=== PATIENT | female | born 1940 | race Caucasian/White ===

== ENCOUNTER 2021-07-17 20:16 | Inpatient (IN) | payer MEDICARE, SELFPAY ==
[2021-07-17] VITALS (13 sets, daily range): BP systolic 104; BP diastolic 50; PULSE 59–76; RESP 12–19; TEMP 36.6; O2SAT 93–100
--- NOTE | ~2021-07-17 | US_ITS ---
EXAMINATION: US renal BI EXAM DATE: 07/18/2021 10:47 INDICATION: Acute kidney insufficiency. TECHNIQUE: Multiple grayscale and Doppler images of the kidneys were obtained (by a technologist who performed the scan) and subsequently reviewed. There is no prior study for comparison. FINDINGS: Right kidney: There is normal contour and echogenicity. It measures 8.4 x 4.6 x 4.9 centimeters. Th ere are no focal renal lesions identified. There is no hydronephrosis. Left kidney: There is normal contour and echogenicity. It measures 8.7 x 4.0 x 4.9 centimeters. The re are no focal renal lesions identified. There is no hydronephrosis. Difficult to visualize the bladder. IMPRESSION: 1. Mild bilateral renal atrophy. 2. No hydronephrosis. Reviewed, dictated and finalized at location B. K SERVICE MANAGER
--- NOTE | ~2021-07-17 | XR_ITS ---
EXAMINATION: XR chest 2V DATE: 07/17/2021 21:21 INDICATION: Weakness. Atrial fibrillation. Nausea, vomiting and diarrhea. TECHNIQUE: frontal and lateral views of the chest were obtained. COMPARISON: None FINDINGS: Linear opacities consistent with discoid atelectasis in the bilateral lower lung zones. No other airs pace opacities, pulmonary edema, pleural effusion or pneumothorax. Heart size is normal. Tortuous and atherosclerotic thoracic aorta. Mild thoracic spondylosis and mild anterior wedging of a midthoracic vertebral body. IMPRESSION: 1. Linear discoid atelectasis in the bilateral lower lung zones. Reviewed, dictated and finalized at location A. SPECIAL EDUCATION TEACHER
--- NOTE | ~2021-07-17 | CT_ITS ---
EXAMINATION: CT brain wo con DATE: 07/17/2021 21:08 INDICATION: Altered mental status post fall TECHNIQUE: Computed tomography (CT) of the head was performed without intravenous contrast. Sagittal and coronal reconstructions were performed. The mA was adjusted according to patient size. Iterative reconstruction technique was employed. The dose-length product was 605.33 mGy-cm. COMPARISON: None FINDINGS: No fracture. No acute intracranial hemorrhage, acute infarction or abnormal extra axial fluid collect ion. There is mild to moderate scattered white matter hypoattenuation consistent with chronic small v essel ischemic disease. Symmetric prominence of the sulci and ventricles consistent with mild age-felicia ropriate diffuse cerebral volume loss. No mass/mass effect. Intracranial calcified cerebral atheroscl erosis is noted. The orbits, paranasal sinuses and mastoid air cells are normal. IMPRESSION: 1. No fracture or acute intracranial process. 2. Age-related changes including mild diffuse volume loss and mild scattered white matter hypoattenua tion consistent with chronic small vessel ischemic disease. Reviewed, dictated and finalized at location A. NESS COORDINATOR IMPRESSION: 1. No fracture or acute intracranial process. 2. Age-related changes including mild diffuse volume loss and mild scattered wh ite matter hypoattenuation consistent with chronic small vessel ischemic diseas e.
--- NOTE | 2021-07-17 20:25 | ECG_ITS ---
Measurements Intervals Wallace Rate: 60 P: 67 VT: 208 QRS: 18 QRSD: 85 T: 70 QT: 372 QTc: 374 Interpretive Statements SINUS RHYTHM EARLY PRECORDIAL R/S TRANSITION BASELINE ARTIFACT- I, II, III, AVR, AVL, AVF, V1-V3 BORDERLINE ECG Electronically Signed On 07-18-2021 7:46:54 COMPUTER SUPPORT SPECIALIST INSTRUCTOR by Wilton Mauricio D.O.
--- NOTE | 2021-07-17 20:56 | ED.WEAKNESS ---
HPI - Weakness General Chief complaint: Weakness <Aric De Souza MD - Last Filed: 07/17/21 21:04> Stated complaint: weakness, diarrhea x 2 wk, new onset afib <Aric De Souza MD - Last Filed: 07/17/21 21:04> Time Seen by Provider: 07/17/21 20:35 <Aric De Souza MD - Last Filed: 07/17/21 21:04> Source: family <Aric De Souza MD - Last Filed: 07/17/21 21:04> Mode of arrival: EMS <Aric De Souza MD - Last Filed: 07/17/21 21:04> Limitations: clinical condition and dementia <Aric De Souza MD - Last Filed: 07/17/21 21:04> History of Present Illness HPI Narrative: 81-year-old female Brought in by EMS accompanied by her daughter complaining of general weakness and debility Apparently the patient had a fall a week or 2 ago and was evaluated for that at [facility] and discharged, and at some point family was upset because a dressing or a diaper was not changed for a relatively prolonged amount of time Since then her daughter is staying with her and she reports basically a progressive global decline, less active, lying around, not eating, not drinking, not walking around, basically lying in bed and moaning most of the time She saw her primary care doctor in [place] earlier today and the daughter said that she was told that if she did perk up by the evening that she should be brought to the ER, although the daughter also says that there was really no reason to believe that said perking up would occur since no changes in her meds or treatment of any kind were initiated Daughter notes that she is had blood in her diapers which she thinks probably comes from sores rather than from the rectum, vagina, or urine EMS thought that she was in A. fib but it appears that she is not She does take Xarelto due to a stroke several years ago, we do not have any of her old records so it is unknown if that was related to A. fib or not, daughter does not know that she is ever had A. fib before <Arci De Souza MD - Last Filed: 07/17/21 21:04> Related Data Allergies/Adverse reactions: Allergies Allergy/AdvReac Type Severity Reaction Status Date / Time codeine AdvReac Other Verified 07/17/21 20:29 <Aric De Souza MD - Last Filed: 07/17/21 21:04> Review of Systems Review of Systems: ROS unobtainable: Yes unobtainable due to medical condition and unobtainable due to mental status <Aric De Souza MD - Last Filed: 07/17/21 21:04> Constitutional: Constitutional: Reports fatigue, Denies fever(s) and Reports weakness <Aric De Souza MD - Last Filed: 07/17/21 21:04> Respiratory: Respiratory: Denies cough and Denies dyspnea <Aric De Souza MD - Last Filed: 07/17/21 21:04> Gastrointestinal: Gastrointestinal: Reports diarrhea and Denies vomiting <Aric De Souza MD - Last Filed: 07/17/21 21:04> Musculoskeletal: Musculoskeletal: Reports myalgias and Reports arthralgias <Aric De Souza MD - Last Filed: 07/17/21 21:04> Neurologic: Reports confusion and Reports weakness <Aric De Souza MD - Last Filed: 07/17/21 21:04> Hematologic/Lymphatic: Hematologic/Lymphatic: Reports easy bleeding <Aric De Souza MD - Last Filed: 07/17/21 21:04> Exam Const: General: cooperative and ill appearing <Aric De Souza MD - Last Filed: 07/17/21 21:04> Orientation/consciousness: confusion <Aric De Souza MD - Last Filed: 07/17/21 21:04> Other: Frail, elderly <Aric De Souza MD - Last Filed: 07/17/21 21:04> HENMT: Head: normal to inspection, normocephalic, atraumatic, no contusions, no hematomas and no lacerations <Aric De Souza MD - Last Filed: 07/17/21 21:04> Ears: external ears normal <Aric De Souza MD - Last Filed: 07/17/21 21:04> General nose exam: no epistaxis <Aric De Souza MD - Last Filed: 07/17/21 21:04> Mouth: Yes dry mucous membranes <Aric De Souza MD - Last Filed: 07/17/21 21:04> Eyes: Conjunctivae: conjunctivae normal <Aric De Souza MD - Last Filed: 07/17/21 21:04> EOM: EOMs intact bilaterally <Antoinette
[2021-07-17] MEDS: LACTATED RINGERS 1,000 ML 999 ML IV CONT (20:58)
[2021-07-17 21:09] LABS: Basophils Percent Auto 0.1 % (0.2-1.2); Eosinophils Percent Auto 0.3 % (0-4.4); Hematocrit 32.4 % (42.0-52.0); Hemoglobin 10.3 g/dL (14.0-18.0); Immature Granulocyte Absolute 0.07 K/mm3 (0.00-0.031); Immature Granulocyte Percent A 0.9 % (0-0.5); Lymphocytes Absolute Auto 0.43 K/mm3 (0.9-3.2); Lymphocytes Percent Auto 5.5 % (18.3-44.2); Mean Corpuscular HGB Conc 31.8 g/dl (32-36); Mean Corpuscular Hemoglobin 31.1 pg (26-34); Mean Corpuscular Volume 97.9 fl (80-100); Monocytes Absolute Auto 0.8 K/mm3 (0.1-0.6); Monocytes Percent Auto 10.7 % (2.6-8.5); Neutrophils Absolute Auto 6.4 K/mm3 (1.3-6.7); Neutrophils Percent Auto 82.5 % (45.5-73.1); Platelet Count Result 205 k/mm3 (150-375); Red Blood Count 3.31 M/mm3 (4.6-6.20); Red Cell Distribution Width 14.1 % (11.5-14.5); White Blood Count 7.8 K/mm3 (4.5-10.0)
[2021-07-17 21:12] LABS: Add Urine Microscopic? YES; Appearance Urine Cloudy (Clear); Bilirubin Urine Negative (Negative); Blood Urine Negative (Negative); Color Urine Yellow (Yellow); Glucose Urine UA Negative (Negative); Ketones Urine Trace mg/dL (Negative); Leukocyte Esterase Ur Negative LEU/UL (Negative); Nitrate Urine Negative (Negative); Protein Urine Negative (Negative); Specific Grav Ur 1.017 (1.001-1.035); Urobilinogen Urine Negative mg/dL (<2.0); WBC Urine 0-3 /hpf
[2021-07-17 21:18] LABS: INR 1.7; Prothrombin Time 19.3 Seconds (11.1-14.7)
[2021-07-17 21:19] LABS: Partial Thromboplastin Time 28.2 SECONDS (22.3-36.8)
[2021-07-17 21:21] LABS: Lactic Acid Reflex 2.4 mmol/L (0.7-2.1)
[2021-07-17 21:26] LABS: Alanine Aminotransferase 11 U/L (4-35); Albumin Level 3.2 g/dL (3.5-5.1); Alkaline Phosphatase 111 U/L (38-126); Anion Gap 15 mmol/L (8-16); Aspartate Amino Transferase 26 U/L (14-36); Bilirubin,Total 0.5 mg/dL (0.2-1.3); Calcium 9.2 mg/dL (8.4-10.2); Carbon Dioxide 16 mmol/L (22-30); Chloride 102 mmol/L (98-107); Estimated CRCL calculation 6 ml/min; Estimated Glomerular Filt Rate 7; Glucose 117 mg/dL (65-110); Potassium 6.8 mmol/L (3.4-5.0); Sodium 133 mmol/L (137-145)
--- NOTE | 2021-07-17 21:34 | PC.NURSE ---
Called lab and spoke to Rach to add on CK
[2021-07-17 21:39] LABS: Blood Urea Nitrogen 153 mg/dL (7-17)
[2021-07-17 21:49] LABS: Creatine Kinase 85 U/L (30-135)
[2021-07-17] MEDS: ALBUTEROL SULFATE NEB 2.5 MG/0.5 ML INH 10 MG INHALATION (22:29)
[2021-07-17] MEDS: INSULIN HUMAN REGULAR (*BKC) 100 UNITS/ML 10 UNITS IV PUSH (22:40)
[2021-07-17] MEDS: CALCIUM GLUCONATE 1,000 MG/10 ML VIAL 1000 MG IV PUSH (22:41)
[2021-07-17] MEDS: DEXTROSE 50% 25 GM/50 ML SYRINGE IV PUSH (22:43)
[2021-07-17] MEDS: HYDROmorphone HCL INJ (*CRX) 1 MG/ML SYR (23:55)
[2021-07-17] MEDS: LACTATED RINGERS 1,000 ML 100 ML IV CONT (23:56)
[2021-07-18] VITALS (26 sets, daily range): BP systolic 93–115; BP diastolic 43–87; PULSE 48–68; RESP 12–20; TEMP 35.9–36.9; O2SAT 92–100; BMI 22.4; BMI 26.2
[2021-07-18 00:06] LABS: Reflex Lactic Acid Yes or No Add Lactic
--- NOTE | 2021-07-18 01:09 | PM.IMHP ---
H&P: HPI History of Present Illness Date/Time: 07/18/21 01:09 Chief Complaint: Altered mental status Narrative: This is an 81-year-old female with past medical history significant for advanced dementia, dyslipidemia, Parkinson's disease, atrial fibrillation. Patient was brought to the emergency room due to daughter's concerns for the patient has declined in mentation and poor oral intake for the last 3 weeks or so patient had a visit to [facility] about a week ago to the emergency room and she then was discharged back home. Patient is unable to give any history she is moaning in pain according to daughter she has a worsening sacral decubitus ulcer, has had fever and very poor oral intake. 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 Decision has been made to admit the patient for further management, evaluation and treatment. Review of Systems Review of Systems: ROS unobtainable: Yes unobtainable due to medical condition (Advanced dementia) [facility] Family History Family History (Updated 07/18/21 @ 02:09 by Brittney Tom RN) Other Unknown family medical history Social History Social History Smoking status: Never smoker Alcohol intake: never Substance use: never Spiritual care concerns: No Meds Home Medications and Allergies Home Medications Medication Instructions Recorded Confirmed Type atorvastatin 80 mg PO HS 07/18/21 07/18/21 History carbidopa-levodopa 1 tablet PO Q12H 07/18/21 07/18/21 History metoprolol succinate 50 mg PO QAM 07/18/21 07/18/21 History pramipexole 1 mg PO Q12H 07/18/21 07/18/21 History rivaroxaban [Xarelto] 15 mg PO QAM 07/18/21 07/18/21 History spironolactone 25 mg PO HS 07/18/21 07/18/21 History spironolactone 50 mg PO QAM 07/18/21 07/18/21 History trazodone 100 mg PO HS 07/18/21 07/18/21 History Allergies Allergy/AdvReac Type Severity Reaction Status Date / Time Tetanus Vaccines and Toxoid Allergy Unknown Verified 07/18/21 02:59 codeine AdvReac Other Verified 07/17/21 20:29 donepezil [From Aricept] AdvReac Confusion Verified 07/18/21 02:59 Vital Signs Vital Signs - 24 hr 07/17/21 20:17 07/17/21 21:49 07/17/21 22:00 Temperature 97.9 F Pulse Rate 76 60 64 Respiratory Rate 15 19 15 Blood Pressure Pulse Oximetry 93 98 100 07/17/21 22:15 07/17/21 22:30 07/17/21 22:33 Temperature Pulse Rate 62 59 L Respiratory Rate 14 18 18 Blood Pressure Pulse Oximetry 100 97 07/17/21 22:47 07/17/21 23:00 07/17/21 23:17 Temperature Pulse Rate 62 73 Respiratory Rate 15 16 15 Blood Pressure Pulse Oximetry 100 100 100 07/17/21 23:21 07/17/21 23:30 07/17/21 23:32 Temperature Pulse Rate 72 71 72 Respiratory Rate 12 16 18 Blood Pressure 104/50 L Pulse Oximetry 100 96 07/17/21 23:45 07/18/21 00:16 07/18/21 00:17 Temperature Pulse Rate 74 67 68 Respiratory Rate 13 12 15 Blood Pressure Pulse Oximetry 98 100 98 07/18/21 00:22 07/18/21 00:26 07/18/21 00:30 Temperature Pulse Rate 65 67 62 Respiratory Rate 13 14 Blood Pressure 93/51 L Pulse Oximetry 100 96 07/18/21 00:31 07/18/21 00:36 07/18/21 00:41 Temperature Pulse Rate 63 61 62 Respiratory Rate 13 13 Blood Pressure Pulse Oximetry 97 07/18/21 00:45 07/18/21 00:51 Temperature Pulse Rate 62 59 L Respiratory Rate 12 15 Blood Pressure 94/58 L Pulse Oximetry 96 97 Exam Narrative: Patient is laying in [facility] Const: General: no acute distress, ill appearing acutely and other (Stuporous) Nutritional Appearance: thin Orientation/consciousness: Other orientation findings (Stuporous) HENMT: Head: normal to inspection, normocephalic and atraumatic Ears: hearing grossly normal bilaterally Face and sinus: normal facial exam Mouth: Yes dry m
--- NOTE | 2021-07-18 02:08 | PC.NURSE ---
This patient, Jane Nance, was admitted to IMU Room 231-01 on 07/18/2021 at 0200. Patient/family oriented to hospital policies and general routines including ID bracelet, bed and alarms, visiting hours, pain management, procedures, bathroom and other care routines, personal items, smoking policy, room service/diet, and visiting hours. Information on how to activate the Rapid Response Team has been discussed. Patient/Family are encouraged to report perceived risks to care and to ask questions if they do not understand what they are told or what they should do.
[2021-07-18 05:50] LABS: Anion Gap 12 mmol/L (8-16); Calcium 9.2 mg/dL (8.4-10.2); Carbon Dioxide 16 mmol/L (22-30); Chloride 101 mmol/L (98-107); Estimated CRCL calculation 8 ml/min; Estimated Glomerular Filt Rate 10; Glucose 117 mg/dL (65-110); Potassium 6.1 mmol/L (3.4-5.0); Sodium 129 mmol/L (137-145)
[2021-07-18 06:26] LABS: Blood Urea Nitrogen 138 mg/dL (7-17)
[2021-07-18] MEDS: LACTATED RINGERS 1,000 ML 100 ML IV CONT (08:36)
[2021-07-18] MEDS: SODIUM BICARBONATE 8.4% 75 MEQ in SODIUM CHLORIDE 0.45% 1,000 ML 100 MEQ IV CONT ×2 (09:55→20:57)
--- NOTE | 2021-07-18 11:53 | PM.IMPN ---
Progress Note: A&P Assessment and Plan (1) Acute renal failure: Qualifiers: Acute renal failure type: unspecified Qualified Code(s): N17.9 - Acute kidney failure, unspecified Code(s): N17.9 - Acute kidney failure, unspecified Status: Acute Assessment and Plan: PATIENT WITH NO KNOWN RENAL DISEASE LIKELY TO BE PRE RENAL PATIENT HAS NOT BEEN EATING OR DRINKING HAS HAD POOR P.O. INTAKE PATIENT HAS BEEN ALSO ON SPIRONOLACTONE HOLDING SPIRONOLACTONE RECEIVING FLUIDS which has been switched to bicarb gtt RECHECK BMP with elevated K, will givce a dose of kayexalate, currently npo and hence will give rectally. rechek bmp and monitor. CHASE CATHETER IN MONITOR INTAKE AND OUTPUT 750 cc +400 cc so far since admission. (2) Acute hyperkalemia: Code(s): E87.5 - Hyperkalemia Status: Acute Assessment and Plan: PATIENT RECEIVED TO THE HYPERKALEMIA PROTOCOL WILL BE REPEATING A POTASSIUM LEVEL CONTINUE TO MONITOR kayexalate rectal. (3) Adult failure to thrive: Code(s): R62.7 - Adult failure to thrive Status: Acute Assessment and Plan: PATIENT WITH ADVANCED DEMENTIA [facility] (4) Decubitus ulcer: Qualifiers: Pressure injury location: unspecified location Pressure injury stage: unspecified pressure injury stage Qualified Code(s): L89.90 - Pressure ulcer of unspecified site, unspecified stage Code(s): L89.90 - Pressure ulcer of unspecified site, unspecified stage Status: Acute Assessment and Plan: LOCAL CARE (5) Parkinson's disease: Code(s): G20 - Parkinson's disease Status: Acute Assessment and Plan: CONTINUE CARBIDOPA LEVODOPA (6) Dementia: Code(s): F03.90 - Unspecified dementia without behavioral disturbance Status: Acute Assessment and Plan: SUPPORTIVE CARE Subjective Date/time seen: 07/18/21 11:53 Interval history: HPI: This is an 81-year-old female with past medical history significant for advanced dementia, dyslipidemia, Parkinson's disease, atrial fibrillation. Patient was brought to the emergency room due to daughter's concerns for the patient has declined in mentation and poor oral intake for the last 3 weeks or so patient had a visit to [facility] about a week ago to the emergency room and she then was discharged back home. Patient is unable to give any history she is moaning in pain according to daughter she has a worsening sacral decubitus ulcer, has had fever and very poor oral intake. 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 Decision has been made to admit the patient for further management, evaluation and treatment. 07/18/2021: overnight noted to be lethargic, minimally verbal, weak voice. some of the words are incomprehensible, however answering appropriately. junie weak. made 750 ml urine overnight, approximately 400 cc in the bag currently. Review of Systems Review of Systems: ROS unobtainable: Yes unobtainable due to medical condition (Advanced dementia) Exam Narrative: GENERAL: The patient is thin,weak frail, lethargic, not in acute distress HEENT: Nonicteric sclerae, PERRLA, EOMI. Oropharynx clear. dry mucous membranes.some dried blood in her oral mucosa noted Conjunctivae appear well perfused. CHEST: Chest wall is nontender. HEART: Regular rate and rhythm without murmur, rubs, or gallops LUNGS: decreased breath sounds bilaterally. no respiratory distress ABDOMEN: Soft, positive bowel sounds, non-tender, no organomegaly. SKIN: No rash, no excessive bruising, petechiae, or purpura. NEUROLOGIC: Cranial nerves II-XII intact, awake, lethargic and frail looking ,moving all extremities generalised weakness noted EXTREMITIES: trace edema, no cyanosis or clubbing Extrem: General: normal exam except as noted and no edema
[2021-07-18] MEDS: SODIUM POLYSTYRENE SULFONONATE 15 GM/60 ML BTL 30 GM RECTAL (12:42)
--- NOTE | 2021-07-18 13:41 | PCOTNOTE ---
Attempted to see pt for evaluation. Pt. on hold today per nurse request due to pt. condition at this time
--- NOTE | 2021-07-18 14:13 | PM.CNNEP ---
Assessment and Plan Assessment and plan (1) Acute renal failure: Qualifiers: Acute renal failure type: unspecified Qualified Code(s): N17.9 - Acute kidney failure, unspecified Code(s): N17.9 - Acute kidney failure, unspecified Status: Acute Assessment and Plan: suspect due to severe volume depletion/hypovolemia follow-up on renal ultrasoud and urine electrolytes agree with IVF hydration hold spironolactone follow I/Os and repeat labs (2) Acute hyperkalemia: Code(s): E87.5 - Hyperkalemia Status: Acute Assessment and Plan: due to TANNER and continued use of spironolactone s/p medical management/therapy follow trend of K+ (3) Decubitus ulcer: Qualifiers: Pressure injury location: unspecified location Pressure injury stage: unspecified pressure injury stage Qualified Code(s): L89.90 - Pressure ulcer of unspecified site, unspecified stage Code(s): L89.90 - Pressure ulcer of unspecified site, unspecified stage Status: Acute Assessment and Plan: local wound care Surgery evaluation needed?? (4) Parkinson's disease: Code(s): G20 - Parkinson's disease Status: Chronic Assessment and Plan: continue home medications (5) Adult failure to thrive: Code(s): R62.7 - Adult failure to thrive Status: Acute Assessment and Plan: suspect secondary to dementia may need to discuss goals of care once acute medical issues resolve Will continue to follow. History of Present Illness Reason for Consult Consult date: 07/18/21 Reason for consult: acute renal failure Chief Complaint Chief complaint: Acute Renal Failure, Hyperkalemia History of Present Illness Narrative: The patient is a 81-year-old female with past medical history as outlined belwo who presented to [facility] ER due to altered mental status and poor oral intake. The patient's sister, who is present in the emergency room to provide much of the history, relates that the patient's mental status has significantly declined in association with poor oral intake for at least the last 3 weeks if not longer. The daughter reports the patient has been having subjective fevers and there was some concern that she has a sacral decubitus ulcer / wound that has been worsening which may be the possible reason for these change in her symptoms. Has a daughter felt that her overall condition was continued to decline, she was requested transfer to the emergency room for further evaluation. Workup and evaluation in the emergency room demonstrated the patient to be relatively hemodynamically stable but in no acute distress. However, as I mentioned above, due to her altered mentation, getting any history from the patient or assess seen any symptoms was difficult as all she would do continued to moan when she was in the emergency room. Routine blood test demonstrated a significant decline in her normal baseline kidney function with a BUN of 153, creatinine of 5.6, and a potassium of 6.8. Her chest x-ray was negative for any type of infiltrates and a CT scan of her head did not demonstrate any acute intracranial findings. On the assumption that her renal failure was due to volume depletion / dehydration, IV fluid were started and the patient was subsequently admitted to the hospital for further evaluation and therapy. Renal consultation was requested due to her acute kidney injury/acute renal failure. From review of her records, the patient has normal kidney function at baseline. She is on spironolactone which could possibly explain her hyperkalemia but her acute kidney injury is likely also playing a role as well. Clinical exam would suggest that her she is severely volume depleted / dehydrated and affected her kidney function as it has been slowly improving with institution of IV fluids would argue in favor of this as well. I suspect that her overall dementia d
[2021-07-18 15:04] LABS: Albumin Level 2.8 g/dL (3.5-5.1); Anion Gap 10 mmol/L (8-16); Calcium 8.9 mg/dL (8.4-10.2); Carbon Dioxide 15 mmol/L (22-30); Chloride 105 mmol/L (98-107); Estimated CRCL calculation 11 ml/min; Estimated Glomerular Filt Rate 15; Glucose 92 mg/dL (65-110); Phosphorus 4.2 mg/dL (2.5-4.5); Sodium 130 mmol/L (137-145)
[2021-07-18 15:21] LABS: Blood Urea Nitrogen 122 mg/dL (7-17)
[2021-07-19] VITALS (17 sets, daily range): BP systolic 126–164; BP diastolic 62–83; PULSE 56–72; RESP 20–22; TEMP 36.2–36.6; O2SAT 95–100; BMI 10.0
[2021-07-19 05:10] LABS: Basophils Percent Auto 0.2 % (0.2-1.2); Eosinophils Absolute Auto 0.2 K/mm3 (0-0.3); Hematocrit 27.1 % (37.0-47.0); Hemoglobin 8.8 g/dL (12.0-15.0); Immature Granulocyte Absolute 0.05 K/mm3 (0.00-0.031); Lymphocytes Absolute Auto 0.64 K/mm3 (0.9-3.2); Lymphocytes Percent Auto 12.7 % (18.3-44.2); Mean Corpuscular HGB Conc 32.5 g/dl (32-36); Mean Corpuscular Hemoglobin 30.3 pg (26-34); Mean Corpuscular Volume 93.4 fl (80-100); Mean Platelet Volume 10.6 fl (7.4-10.4); Monocytes Absolute Auto 0.5 K/mm3 (0.1-0.6); Monocytes Percent Auto 10.7 % (2.6-8.5); Neutrophils Absolute Auto 3.7 K/mm3 (1.3-6.7); Neutrophils Percent Auto 72.4 % (45.5-73.1); Platelet Count Result 163 k/mm3 (150-375); Red Cell Distribution Width 14.4 % (11.5-14.5)
[2021-07-19 05:46] LABS: Anion Gap 9 mmol/L (8-16); Blood Urea Nitrogen 89 mg/dL (7-17); Calcium 8.7 mg/dL (8.4-10.2); Carbon Dioxide 22 mmol/L (22-30); Chloride 109 mmol/L (98-107); Estimated CRCL calculation 18 ml/min; Estimated Glomerular Filt Rate 25; Glucose 87 mg/dL (65-110); Potassium 4.6 mmol/L (3.4-5.0); Sodium 140 mmol/L (137-145)
[2021-07-19] MEDS: METOPROLOL SUCCINATE EXT REL 50 MG TABCR PO (09:59)
[2021-07-19] MEDS: CARBIDOPA/LEVODOPA 25/100 MG TABLET 1 TABLET PO ×2 (09:59→16:59)
[2021-07-19] MEDS: SODIUM BICARBONATE 8.4% 75 MEQ in SODIUM CHLORIDE 0.45% 1,000 ML 100 MEQ IV CONT (12:59)
--- NOTE | 2021-07-19 13:34 | PM.IMPN ---
Progress Note: A&P Assessment and Plan (1) Acute renal failure: Qualifiers: Acute renal failure type: unspecified Qualified Code(s): N17.9 - Acute kidney failure, unspecified Code(s): N17.9 - Acute kidney failure, unspecified Status: Acute Assessment and Plan: PATIENT WITH NO KNOWN RENAL DISEASE LIKELY TO BE PRE RENAL PATIENT HAS NOT BEEN EATING OR DRINKING HAS HAD POOR P.O. INTAKE PATIENT HAS BEEN ALSO ON SPIRONOLACTONE HOLDING SPIRONOLACTONE RECEIVING FLUIDS which has been switched to bicarb gtt RECHECK BMP with elevated K, will givce a dose of kayexalate, currently npo and hence will give rectally. rechek bmp and monitor. CHASE CATHETER IN MONITOR INTAKE AND OUTPUT urine output over 24 hour yesterday is 1475 mL. Creatinine is down to 1.9 from 5 on admission Metabolic acidosis has resolved will switch is drip from bicarb drip to normal saline at 50 cc an Nephrology following (2) Acute hyperkalemia: Code(s): E87.5 - Hyperkalemia Status: Acute Assessment and Plan: PATIENT RECEIVED TO THE HYPERKALEMIA PROTOCOL WILL BE REPEATING A POTASSIUM LEVEL CONTINUE TO MONITOR kayexalate rectal. Hyperkalemia has resolved (3) Adult failure to thrive: Code(s): R62.7 - Adult failure to thrive Status: Acute Assessment and Plan: PATIENT WITH ADVANCED DEMENTIA [facility] (4) Decubitus ulcer: Qualifiers: Pressure injury location: unspecified location Pressure injury stage: unspecified pressure injury stage Qualified Code(s): L89.90 - Pressure ulcer of unspecified site, unspecified stage Code(s): L89.90 - Pressure ulcer of unspecified site, unspecified stage Status: Acute Assessment and Plan: LOCAL CARE (5) Parkinson's disease: Code(s): G20 - Parkinson's disease Status: Acute Assessment and Plan: CONTINUE CARBIDOPA LEVODOPA (6) Dementia: Code(s): F03.90 - Unspecified dementia without behavioral disturbance Status: Acute Assessment and Plan: SUPPORTIVE CARE Subjective Date/time seen: 07/19/21 13:34 Interval history: HPI: This is an 81-year-old female with past medical history significant for advanced dementia, dyslipidemia, Parkinson's disease, atrial fibrillation. Patient was brought to the emergency room due to daughter's concerns for the patient has declined in mentation and poor oral intake for the last 3 weeks or so patient had a visit to [facility] about a week ago to the emergency room and she then was discharged back home. Patient is unable to give any history she is moaning in pain according to daughter she has a worsening sacral decubitus ulcer, has had fever and very poor oral intake. 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 Decision has been made to admit the patient for further management, evaluation and treatment. 07/18/2021: overnight noted to be lethargic, minimally verbal, weak voice. some of the words are incomprehensible, however answering appropriately. junie gibson. made 750 ml urine overnight, approximately 400 cc in the bag currently. 07/19/2021: Overnight events. Patient is more awake asks me what she is supposed to do. She has advanced dementia and does not know where she is at. Chase catheter in place and making good amount urine. Renal function has gotten better to 1.9 today Review of Systems Review of Systems: ROS unobtainable: Yes unobtainable due to medical condition (Advanced dementia) Exam Narrative: GENERAL: The patient is thin,weak frail, more awake, not in acute distress HEENT: Nonicteric sclerae, PERRLA, EOMI. Oropharynx clear. dry mucous membranes.some dried blood in her oral mucosa noted Conjunctivae appear well perfused. CHEST: Chest wall is nontender. HEART: Regular rate and rhythm without mur
--- NOTE | 2021-07-19 15:32 | PM.PNNEP ---
Progress Note: A&P Assessment and Plan (1) Acute renal failure: Qualifiers: Acute renal failure type: unspecified Qualified Code(s): N17.9 - Acute kidney failure, unspecified Code(s): N17.9 - Acute kidney failure, unspecified Status: Acute Assessment and Plan: suspect due to severe volume depletion/hypovolemia renal ultrasound and urin electrolytes noted creatinine improving with good urine output agree with IVF hydration hold spironolactone follow I/Os and repeat labs (2) Acute hyperkalemia: Code(s): E87.5 - Hyperkalemia Status: Acute Assessment and Plan: due to TANNER and continued use of spironolactone s/p medical management/therapy follow trend of K+ (3) Decubitus ulcer: Qualifiers: Pressure injury location: unspecified location Pressure injury stage: unspecified pressure injury stage Qualified Code(s): L89.90 - Pressure ulcer of unspecified site, unspecified stage Code(s): L89.90 - Pressure ulcer of unspecified site, unspecified stage Status: Acute Assessment and Plan: local wound care (4) Parkinson's disease: Code(s): G20 - Parkinson's disease Status: Chronic Assessment and Plan: continue home medications (5) Adult failure to thrive: Code(s): R62.7 - Adult failure to thrive Status: Acute Assessment and Plan: suspect secondary to dementia may need to discuss goals of care once acute medical issues resolve Will continue to follow. Subjective Date/time seen: 07/19/21 15:32 Mentation is a bit better (speaking but confused secondary to dementia); renal function is improving with good urine output with IVFs; no other acute issues or problems noted; no events/issues overnight or earlier this morning; no distress apparent. Exam Narrative: General: thin and weak female in NAD Heart: normal S1 and S2; no rub Lungs: decreased at bases Abdomen: soft, nontender, nondistended, positive bowel sounds Extremities: no cyanosis or clubbing; trace edema Skin: warm and dry Objective Data Vital Signs Vital Signs: Vital Signs Temp Pulse Resp BP Pulse Ox 07/19/21 14:00 61 07/19/21 12:00 36.3 C L 60 20 140/75 99 07/19/21 10:00 66 07/19/21 09:59 67 07/19/21 08:00 36.2 C L 72 22 H 137/64 95 07/19/21 06:00 64 07/19/21 04:00 36.4 C 63 20 126/62 100 07/19/21 03:23 62 20 95 07/19/21 02:00 60 07/19/21 00:00 56 L 20 95 07/18/21 23:49 35.9 C L 54 L 20 108/56 L 95 07/18/21 22:00 48 L 07/18/21 21:15 56 L 95 07/18/21 20:00 36.2 C L 66 20 101/49 L 95 07/18/21 18:00 60 Intake/Output Intake/Output: Intake & Output 07/16/21 07/17/21 07/18/21 07/19/21 23:59 23:59 23:59 23:59 Intake Total 1000 2275 1080 Output Total 1425 800 Balance 1000 850 280 Meds/Results Medications: Active Medications Generic Name Dose Route Start Last Admin Trade Name Derrellq PRN Reason Stop Dose Admin Carbidopa/Levodopa 1 tablet 07/18/21 08:00 07/19/21 09:59 Carbidopa/Levodopa 25/100 Mg Tablet PO 1 tablet BIDWM SAMMY Administration Sodium Chloride 1,000 mls @ 60 mls/hr 07/19/21 13:40 Normal Saline Iv IV CONT .[id number] SAMMY Metoprolol Succinate 50 mg 07/18/21 09:00 07/19/21 09:59 Metoprolol Succinate Ext Rel 50 Mg Tabcr PO 50 mg QAM SAMMY Administration Radiology Results: ITS Impressions Head CT 07/17/21 21:13 IMPRESSION: 1. No fracture or acute intracranial process. 2. Age-related changes including mild diffuse volume loss and mild scattered white matter hypoattenuation consistent with chronic small vessel ischemic disease. Chest X-Ray 07/17/21 21:21 IMPRESSION: 1. Linear discoid atelectasis in the bilateral lower lung zones. Renal Ultrasound 07/18/21 11:05 IMPRESSION: 1. Mild bilateral renal atrophy. 2. No hydronephrosis. Labs Labs
[2021-07-19] MEDS: SODIUM CHLORIDE 0.9% IV 1,000 ML 60 ML IV CONT (16:59)
[2021-07-19 22:34] LABS: Creatinine Urine 59.8 mg/dL
[2021-07-19 22:38] LABS: Sodium Urine Random 48 meq/L
[2021-07-20] VITALS (11 sets, daily range): BP systolic 117–145; BP diastolic 46–80; PULSE 44–60; RESP 16–19; TEMP 36.4–36.6; O2SAT 96–97
[2021-07-20 04:54] LABS: Basophils Percent Auto 0.3 % (0.2-1.2); Eosinophils Absolute Auto 0.2 K/mm3 (0-0.3); Eosinophils Percent Auto 2.1 % (0-4.4); Hematocrit 27.8 % (37.0-47.0); Hemoglobin 9.1 g/dL (12.0-15.0); Immature Granulocyte Absolute 0.08 K/mm3 (0.00-0.031); Immature Granulocyte Percent A 1.1 % (0-0.5); Lymphocytes Absolute Auto 0.94 K/mm3 (0.9-3.2); Lymphocytes Percent Auto 13.1 % (18.3-44.2); Mean Corpuscular HGB Conc 32.7 g/dl (32-36); Mean Corpuscular Hemoglobin 31.4 pg (26-34); Mean Corpuscular Volume 95.9 fl (80-100); Mean Platelet Volume 10.3 fl (7.4-10.4); Monocytes Absolute Auto 0.8 K/mm3 (0.1-0.6); Monocytes Percent Auto 10.6 % (2.6-8.5); Neutrophils Absolute Auto 5.2 K/mm3 (1.3-6.7); Neutrophils Percent Auto 72.8 % (45.5-73.1); Platelet Count Result 166 k/mm3 (150-375); Red Cell Distribution Width 14.9 % (11.5-14.5); White Blood Count 7.2 K/mm3 (4.5-10.0)
[2021-07-20 05:15] LABS: Anion Gap 4 mmol/L (8-16); Blood Urea Nitrogen 52 mg/dL (7-17); Calcium 8.4 mg/dL (8.4-10.2); Carbon Dioxide 27 mmol/L (22-30); Chloride 112 mmol/L (98-107); Estimated CRCL calculation 27 ml/min; Estimated Glomerular Filt Rate 43; Glucose 102 mg/dL (65-110); Magnesium 2.2 mg/dL (1.6-2.3); Potassium 4.2 mmol/L (3.4-5.0); Sodium 143 mmol/L (137-145)
[2021-07-20] MEDS: CARBIDOPA/LEVODOPA 25/100 MG TABLET 1 TABLET PO ×2 (09:29→18:04)
[2021-07-20] MEDS: SODIUM CHLORIDE 0.9% IV 1,000 ML 60 ML IV CONT (09:30)
--- NOTE | 2021-07-20 12:05 | PM.PNNEP ---
Progress Note: A&P Assessment and Plan (1) Acute renal failure: Qualifiers: Acute renal failure type: unspecified Qualified Code(s): N17.9 - Acute kidney failure, unspecified Code(s): N17.9 - Acute kidney failure, unspecified Status: Acute Assessment and Plan: suspect due to severe volume depletion/hypovolemia renal ultrasound and urine electrolytes noted creatinine improving with good urine output agree with IVF hydration hold spironolactone follow I/Os and repeat labs (2) Acute hyperkalemia: Code(s): E87.5 - Hyperkalemia Status: Acute Assessment and Plan: due to TANNER and continued use of spironolactone s/p medical management/therapy follow trend of K+ (3) Decubitus ulcer: Qualifiers: Pressure injury location: unspecified location Pressure injury stage: unspecified pressure injury stage Qualified Code(s): L89.90 - Pressure ulcer of unspecified site, unspecified stage Code(s): L89.90 - Pressure ulcer of unspecified site, unspecified stage Status: Acute Assessment and Plan: local wound care (4) Parkinson's disease: Code(s): G20 - Parkinson's disease Status: Chronic Assessment and Plan: continue home medications (5) Adult failure to thrive: Code(s): R62.7 - Adult failure to thrive Status: Acute Assessment and Plan: suspect secondary to dementia may need to discuss goals of care once acute medical issues resolve Will continue to follow. Subjective Date/time seen: 07/20/21 12:05 Continues to make slow and steady process in general; mentation somewhat better; continues to make good urine output with ongoing improvement in renal function; no other issues/events overnight or earlier this morning. Exam Narrative: General: thin and weak female in NAD Heart: normal S1 and S2; no rub Lungs: decreased at bases Abdomen: soft, nontender, nondistended, positive bowel sounds Extremities: no cyanosis or clubbing; trace edema Skin: warm and intact Objective Data Vital Signs Vital Signs: Vital Signs Temp Pulse Resp BP Pulse Ox 07/20/21 09:57 58 L 07/20/21 08:00 36.6 C 52 L 16 127/64 97 07/20/21 07:10 36.4 C 56 L 18 145/80 H 97 07/20/21 06:00 56 L 07/20/21 04:00 51 L 07/20/21 03:35 36.6 C 44 L 16 119/65 97 07/20/21 02:00 48 L 07/20/21 00:00 55 L 07/19/21 23:18 36.4 C 70 20 150/83 H 99 07/19/21 22:00 61 07/19/21 21:16 58 L 95 07/19/21 20:03 60 07/19/21 20:00 36.6 C 56 L 20 149/73 H 96 07/19/21 18:00 59 L 07/19/21 16:00 36.4 C 56 L 22 H 164/64 H 100 07/19/21 14:00 61 Intake/Output Intake/Output: Intake & Output 07/17/21 07/18/21 07/19/21 07/20/21 23:59 23:59 23:59 23:59 Intake Total 1000 2275 1300 1060 Output Total 1425 800 450 Balance 1000 850 500 610 Meds/Results Medications: Active Medications Generic Name Dose Route Start Last Admin Trade Name Derrellq PRN Reason Stop Dose Admin Carbidopa/Levodopa 1 tablet 07/18/21 08:00 07/20/21 09:29 Carbidopa/Levodopa 25/100 Mg Tablet PO 1 tablet BIDWM SAMMY Administration Sodium Chloride 1,000 mls @ 60 mls/hr 07/19/21 13:40 07/20/21 09:30 Normal Saline Iv IV CONT 60 mls/hr .[id number] SAMMY Administration Metoprolol Succinate 50 mg 07/18/21 09:00 07/19/21 09:59 Metoprolol Succinate Ext Rel 50 Mg Tabcr PO 50 mg QAM SAMMY Administration Radiology Results: ITS Impressions Head CT 07/17/21 21:13 IMPRESSION: 1. No fracture or acute intracranial process. 2. Age-related changes including mild diffuse volume loss and mild scattered white matter hypoattenuation consistent with chronic small vessel ischemic disease. Chest X-Ray 07/17/21 21:21 IMPRESSION: 1. Linear discoid atelectasis in the bilateral lower lung zones. Renal Ultrasound 07/18/21 11:05 IMPRESSION: 1. Mild bilat
--- NOTE | 2021-07-20 14:36 | PC.NURSE ---
On 07/20/21, the student, [Eliceo Barth], provided care and completed [facility] documentation on this patient. I have reviewed the student's documentation and agree with the findings.
--- NOTE | 2021-07-20 16:52 | PM.IMPN ---
Progress Note: A&P Assessment and Plan (1) Acute renal failure: Qualifiers: Acute renal failure type: unspecified Qualified Code(s): N17.9 - Acute kidney failure, unspecified Code(s): N17.9 - Acute kidney failure, unspecified Status: Acute Assessment and Plan: PATIENT WITH NO KNOWN RENAL DISEASE LIKELY TO BE PRE RENAL PATIENT HAS NOT BEEN EATING OR DRINKING HAS HAD POOR P.O. INTAKE PATIENT HAS BEEN ALSO ON SPIRONOLACTONE HOLDING SPIRONOLACTONE RECEIVING FLUIDS which has been switched to bicarb gtt RECHECK BMP with elevated K, will givce a dose of kayexalate, currently npo and hence will give rectally. rechek bmp and monitor. CHASE CATHETER IN MONITOR INTAKE AND OUTPUT urine output over 24 hour yesterday is 1475 mL. Creatinine is down to 1.9 from 5 on admission Metabolic acidosis has resolved switched bicarb drip to normal saline at 50 cc an hour Nephrology following Kidney function back to normal. Very poor intake will need took speak to family about goals of care/address oral intake. Due to her dementia she needs to be fed (2) Acute hyperkalemia: Code(s): E87.5 - Hyperkalemia Status: Acute Assessment and Plan: PATIENT RECEIVED TO THE HYPERKALEMIA PROTOCOL WILL BE REPEATING A POTASSIUM LEVEL CONTINUE TO MONITOR kayexalate rectal. Hyperkalemia has resolved (3) Adult failure to thrive: Code(s): R62.7 - Adult failure to thrive Status: Acute Assessment and Plan: PATIENT WITH ADVANCED DEMENTIA (4) Decubitus ulcer: Qualifiers: Pressure injury location: unspecified location Pressure injury stage: unspecified pressure injury stage Qualified Code(s): L89.90 - Pressure ulcer of unspecified site, unspecified stage Code(s): L89.90 - Pressure ulcer of unspecified site, unspecified stage Status: Acute Assessment and Plan: LOCAL CARE (5) Parkinson's disease: Code(s): G20 - Parkinson's disease Status: Acute Assessment and Plan: CONTINUE CARBIDOPA LEVODOPA (6) Dementia: Code(s): F03.90 - Unspecified dementia without behavioral disturbance Status: Acute Assessment and Plan: SUPPORTIVE CARE Subjective Date/time seen: 07/20/21 16:52 Interval history: HPI: This is an 81-year-old female with past medical history significant for advanced dementia, dyslipidemia, Parkinson's disease, atrial fibrillation. Patient was brought to the emergency room due to daughter's concerns for the patient has declined in mentation and poor oral intake for the last 3 weeks or so patient had a visit to [facility] about a week ago to the emergency room and she then was discharged back home. Patient is unable to give any history she is moaning in pain according to daughter she has a worsening sacral decubitus ulcer, has had fever and very poor oral intake. 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 Decision has been made to admit the patient for further management, evaluation and treatment. 07/18/2021: overnight noted to be lethargic, minimally verbal, weak voice. some of the words are incomprehensible, however answering appropriately. geenarlly weak. made 750 ml urine overnight, approximately 400 cc in the bag currently. 07/19/2021: No Overnight events. Patient is more awake asks me what she is supposed to do. She has advanced dementia and does not know where she is at. Chase catheter in place and making good amount urine. Renal function has gotten better to 1.9 today 07/20/2021. No overnight events. Patient more awake. States she is nauseous. No vomiting. She denies any abdominal pain. Chase catheter in place and making good amount urine. Review of Systems Review of Systems: ROS unobtainable: Yes unobtainable due to medical condition (Advanced dementia) Exam
[2021-07-21] VITALS (8 sets, daily range): BP systolic 101–146; BP diastolic 54–75; PULSE 64–73; RESP 17–19; TEMP 36.3–37.2; O2SAT 94–97; BMI 10.0
[2021-07-21] MEDS: SODIUM CHLORIDE 0.9% IV 1,000 ML 60 ML IV CONT (04:02)
[2021-07-21 04:43] LABS: Basophils Percent Auto 0.1 % (0.2-1.2); Eosinophils Absolute Auto 0.2 K/mm3 (0-0.3); Hematocrit 27.9 % (37.0-47.0); Immature Granulocyte Absolute 0.11 K/mm3 (0.00-0.031); Immature Granulocyte Percent A 1.4 % (0-0.5); Lymphocytes Absolute Auto 0.98 K/mm3 (0.9-3.2); Lymphocytes Percent Auto 12.4 % (18.3-44.2); Mean Corpuscular HGB Conc 32.3 g/dl (32-36); Mean Corpuscular Hemoglobin 31.3 pg (26-34); Mean Corpuscular Volume 96.9 fl (80-100); Mean Platelet Volume 10.3 fl (7.4-10.4); Monocytes Absolute Auto 0.7 K/mm3 (0.1-0.6); Monocytes Percent Auto 8.8 % (2.6-8.5); Neutrophils Absolute Auto 5.9 K/mm3 (1.3-6.7); Neutrophils Percent Auto 75.3 % (45.5-73.1); Platelet Count Result 162 k/mm3 (150-375); Red Blood Count 2.88 M/mm3 (4.2-5.4); Red Cell Distribution Width 14.9 % (11.5-14.5); White Blood Count 7.9 K/mm3 (4.5-10.0)
[2021-07-21 05:40] LABS: Anion Gap 4 mmol/L (8-16); Blood Urea Nitrogen 34 mg/dL (7-17); Calcium 8.1 mg/dL (8.4-10.2); Carbon Dioxide 23 mmol/L (22-30); Chloride 116 mmol/L (98-107); Estimated CRCL calculation 33 ml/min; Estimated Glomerular Filt Rate 53; Glucose 103 mg/dL (65-110); Potassium 4.2 mmol/L (3.4-5.0); Sodium 143 mmol/L (137-145)
--- NOTE | 2021-07-21 10:00 | PM.IMPN ---
Progress Note: A&P Assessment and Plan (1) Acute renal failure: Qualifiers: Acute renal failure type: unspecified Qualified Code(s): N17.9 - Acute kidney failure, unspecified Code(s): N17.9 - Acute kidney failure, unspecified Status: Acute Assessment and Plan: PATIENT WITH NO KNOWN RENAL DISEASE LIKELY TO BE PRE RENAL PATIENT HAS NOT BEEN EATING OR DRINKING HAS HAD POOR P.O. INTAKE PATIENT HAS BEEN ALSO ON SPIRONOLACTONE HOLDING SPIRONOLACTONE RECEIVING FLUIDS which has been switched to bicarb gtt RECHECK BMP with elevated K, will givce a dose of kayexalate, currently npo and hence will give rectally. rechek bmp and monitor. CHASE CATHETER IN MONITOR INTAKE AND OUTPUT urine output over 24 hour yesterday is 1475 mL. Creatinine is down to 1.9 from 5 on admission Metabolic acidosis has resolved switched bicarb drip to normal saline at 50 cc an hour Nephrology following Kidney function back to normal. Very poor intake will need took speak to family about goals of care/address oral intake. Due to her dementia she needs to be fed This is resolved (2) Acute hyperkalemia: Code(s): E87.5 - Hyperkalemia Status: Acute Assessment and Plan: PATIENT RECEIVED TO THE HYPERKALEMIA PROTOCOL WILL BE REPEATING A POTASSIUM LEVEL CONTINUE TO MONITOR kayexalate rectal. Hyperkalemia has resolved (3) Adult failure to thrive: Code(s): R62.7 - Adult failure to thrive Status: Acute Assessment and Plan: PATIENT WITH ADVANCED DEMENTIA Poor p.o. intake: Needs to be fed due to her advanced dementia Will discuss goals of care with her for returning today hospice appropriate (4) Decubitus ulcer: Qualifiers: Pressure injury location: unspecified location Pressure injury stage: unspecified pressure injury stage Qualified Code(s): L89.90 - Pressure ulcer of unspecified site, unspecified stage Code(s): L89.90 - Pressure ulcer of unspecified site, unspecified stage Status: Acute Assessment and Plan: LOCAL CARE (5) Parkinson's disease: Code(s): G20 - Parkinson's disease Status: Acute Assessment and Plan: CONTINUE CARBIDOPA LEVODOPA (6) Dementia: Code(s): F03.90 - Unspecified dementia without behavioral disturbance Status: Acute Assessment and Plan: SUPPORTIVE CARE Subjective Date/time seen: 07/21/21 10:00 Interval history: HPI: This is an 81-year-old female with past medical history significant for advanced dementia, dyslipidemia, Parkinson's disease, atrial fibrillation. Patient was brought to the emergency room due to daughter's concerns for the patient has declined in mentation and poor oral intake for the last 3 weeks or so patient had a visit to [facility] about a week ago to the emergency room and she then was discharged back home. Patient is unable to give any history she is moaning in pain according to daughter she has a worsening sacral decubitus ulcer, has had fever and very poor oral intake. 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 Decision has been made to admit the patient for further management, evaluation and treatment. 07/18/2021: overnight noted to be lethargic, minimally verbal, weak voice. some of the words are incomprehensible, however answering appropriately. junie gibson. made 750 ml urine overnight, approximately 400 cc in the bag currently. 07/19/2021: No Overnight events. Patient is more awake asks me what she is supposed to do. She has advanced dementia and does not know where she is at. Chase catheter in place and making good amount urine. Renal function has gotten better to 1.9 today 07/20/2021. No overnight events. Patient more awake. States she is nauseous. No vomiting. She denies any abdominal pain. Chase catheter in place
[2021-07-21] MEDS: METOPROLOL SUCCINATE EXT REL 50 MG TABCR PO (10:54)
[2021-07-21] MEDS: CARBIDOPA/LEVODOPA 25/100 MG TABLET 1 TABLET PO (10:55)
[2021-07-21] MEDS: PRAMIPEXOLE 1 MG TABLET PO ×2 (10:56→20:25)
[2021-07-21] MEDS: RIVAROXABAN 15 MG TABLET PO (10:56)
--- NOTE | 2021-07-21 11:40 | PCNFU ---
Nutrition Follow-Up Complete: Inadequate Oral Intake as related to advanced dementia as evidenced by poor po intake reported. Goal: Meet estimated nutritional needs Patient is progressing towards goal. No new goal at this time. Pt current nutrition is a heart healthy diet. Last recorded weight is 63 kg. Recommend re-weighing pt. prior to discharge. Bowel Motility: + BM 07/19/2021 Labs Reviewed: Hgb 9.0, Hct 27.9, GFR 53, BUN 34 Meds Noted: Lipitor, Mirapex, Xarelto, Toprol Xl, Sinemet Skin: right heel pressure ulcer and deep tissue sacral pressure ulcer Additional Notes: Pt. is consuming on average 20% of meals ordered. She is receiving ensure compact BID providing an additional 220 calories and 9 grams of protein. Will monitor every 3 days.
--- NOTE | 2021-07-21 13:41 | PCNSR ---
On 07/21/21, the student,Belkys Gamino, provided care and completed [facility] documentation on this patient. I have reviewed the student's documentation and agree with the findings.
--- NOTE | 2021-07-21 13:45 | PM.PNNEP ---
Progress Note: A&P Assessment and Plan (1) Acute renal failure: Qualifiers: Acute renal failure type: unspecified Qualified Code(s): N17.9 - Acute kidney failure, unspecified Code(s): N17.9 - Acute kidney failure, unspecified Status: Acute Assessment and Plan: suspect due to severe volume depletion/hypovolemia renal ultrasound and urine electrolytes noted creatinine improving with good urine output agree with IVF hydration hold spironolactone follow I/Os and repeat labs (2) Acute hyperkalemia: Code(s): E87.5 - Hyperkalemia Status: Acute Assessment and Plan: due to TANNER and continued use of spironolactone s/p medical management/therapy follow trend of K+ (3) Decubitus ulcer: Qualifiers: Pressure injury location: unspecified location Pressure injury stage: unspecified pressure injury stage Qualified Code(s): L89.90 - Pressure ulcer of unspecified site, unspecified stage Code(s): L89.90 - Pressure ulcer of unspecified site, unspecified stage Status: Acute Assessment and Plan: local wound care (4) Parkinson's disease: Code(s): G20 - Parkinson's disease Status: Chronic Assessment and Plan: continue home medications (5) Adult failure to thrive: Code(s): R62.7 - Adult failure to thrive Status: Acute Assessment and Plan: suspect secondary to dementia will need to discuss goals of care with family (i.e. does she need a G-tube?) Not much else to add -- will continue to follow from a distance. Subjective Date/time seen: 07/21/21 13:45 No apparent distress noted but assessment limited by advanced dementia; continues to make good urine output and renal function has normalized; unfortunately, she continues to have poor oral intake. Exam Narrative: General: thin and weak female in NAD Heart: normal S1 and S2; no rub Lungs: decreased at bases Abdomen: soft, nontender, nondistended, positive bowel sounds Extremities: no cyanosis or clubbing; trace edema Skin: warm and intact Objective Data Vital Signs Vital Signs: Vital Signs Temp Pulse Resp BP Pulse Ox 07/21/21 11:43 36.6 C 73 18 138/61 97 07/21/21 10:54 71 07/21/21 08:58 37.2 C 71 18 146/68 H 94 07/21/21 08:00 71 18 94 07/21/21 04:00 36.5 C 72 18 101/54 L 94 07/21/21 00:00 36.6 C 64 17 120/65 97 07/20/21 20:00 36.5 C 60 19 117/46 L 96 07/20/21 15:53 36.4 C 51 L 18 118/60 97 Intake/Output Intake/Output: Intake & Output 07/18/21 07/19/21 07/20/21 07/21/21 23:59 23:59 23:59 23:59 Intake Total 2275 1300 1540 1420 Output Total 1425 800 850 500 Balance 850 500 690 920 Meds/Results Medications: Active Medications Generic Name Dose Route Start Last Admin Trade Name Freq PRN Reason Stop Dose Admin Atorvastatin Calcium 80 mg 07/21/21 21:00 Atorvastatin 40 Mg Tablet PO HS SAMMY Carbidopa/Levodopa 1 tablet 07/18/21 08:00 07/21/21 10:55 Carbidopa/Levodopa 25/100 Mg Tablet PO 1 tablet BIDWM SAMMY Administration Sodium Chloride 1,000 mls @ 60 mls/hr 07/19/21 13:40 07/21/21 04:02 Normal Saline Iv IV CONT 60 mls/hr .[id number] SAMMY Administration Metoprolol Succinate 50 mg 07/18/21 09:00 07/21/21 10:54 Metoprolol Succinate Ext Rel 50 Mg Tabcr PO 50 mg QAM SAMMY Administration Pramipexole Dihydrochloride 1 mg 07/21/21 09:00 07/21/21 10:56 Pramipexole 1 Mg Tablet PO 1 mg Q12HR SAMMY Administration Rivaroxaban 15 mg 07/21/21 09:00 07/21/21 10:56 Rivaroxaban 15 Mg Tablet PO 15 mg QAM SAMMY Administration Radiology Results: ITS Impressions Head CT 07/17/21 21:13 IMPRESSION: 1. No fracture or acute intracranial process. 2. Age-related changes including mild diffuse volume loss and mild scattered white matter hypoattenuation consistent with chronic small vessel ischemic disease. Chest X-Ray 07/17/21
--- NOTE | 2021-07-21 14:46 | PC.NURSE ---
On 07/21/21, the student, [So Rey], provided care and completed [facility] documentation on this patient. I have reviewed the student's documentation and agree with the findings.
[2021-07-21] MEDS: ATORVASTATIN 40 MG TABLET 80 MG PO (20:25)
[2021-07-22] VITALS (7 sets, daily range): BP systolic 120–151; BP diastolic 55–94; PULSE 49–64; RESP 16–20; TEMP 36.1–36.6; O2SAT 97–100
[2021-07-22] MEDS: SODIUM CHLORIDE 0.9% IV 1,000 ML 60 ML IV CONT (00:45)
--- NOTE | 2021-07-22 05:10 | PC.NURSE ---
This patient, Jane Nance, was transferred to [[id number]] on 07/22/21 at 0500. Personal belongings sent with patient. Report given to [ Rola Rodriguez]. Appropriate documentation sent with patient.
--- NOTE | 2021-07-22 05:14 | PC.NURSE ---
Received pt from IMU per bed at 0500.IV intact, bed alarm activated and call light in reach.
[2021-07-22 08:19] LABS: Basophils Percent Auto 0.1 % (0.2-1.2); Eosinophils Absolute Auto 0.2 K/mm3 (0-0.3); Eosinophils Percent Auto 2.4 % (0-4.4); Hemoglobin 9.1 g/dL (12.0-15.0); Immature Granulocyte Absolute 0.11 K/mm3 (0.00-0.031); Immature Granulocyte Percent A 1.5 % (0-0.5); Lymphocytes Absolute Auto 0.98 K/mm3 (0.9-3.2); Mean Corpuscular HGB Conc 32.5 g/dl (32-36); Mean Corpuscular Hemoglobin 31.8 pg (26-34); Mean Corpuscular Volume 97.9 fl (80-100); Mean Platelet Volume 10.8 fl (7.4-10.4); Monocytes Absolute Auto 0.6 K/mm3 (0.1-0.6); Monocytes Percent Auto 8.5 % (2.6-8.5); Neutrophils Absolute Auto 5.6 K/mm3 (1.3-6.7); Neutrophils Percent Auto 74.5 % (45.5-73.1); Platelet Count Result 156 k/mm3 (150-375); Red Blood Count 2.86 M/mm3 (4.2-5.4); Red Cell Distribution Width 15.4 % (11.5-14.5); White Blood Count 7.6 K/mm3 (4.5-10.0)
[2021-07-22 08:27] LABS: Anion Gap 3 mmol/L (8-16); Blood Urea Nitrogen 21 mg/dL (7-17); Calcium 7.8 mg/dL (8.4-10.2); Carbon Dioxide 23 mmol/L (22-30); Chloride 113 mmol/L (98-107); Estimated CRCL calculation 36 ml/min; Estimated Glomerular Filt Rate 60; Glucose 109 mg/dL (65-110); Potassium 3.9 mmol/L (3.4-5.0); Sodium 139 mmol/L (137-145)
[2021-07-22] MEDS: METOPROLOL SUCCINATE EXT REL 50 MG TABCR PO (08:45)
[2021-07-22] MEDS: CARBIDOPA/LEVODOPA 25/100 MG TABLET 1 TABLET PO ×2 (08:45→16:38)
[2021-07-22] MEDS: RIVAROXABAN 15 MG TABLET PO (08:46)
[2021-07-22] MEDS: PRAMIPEXOLE 1 MG TABLET PO ×2 (08:46→20:50)
--- NOTE | 2021-07-22 10:02 | PM.IMPN ---
Progress Note: A&P Assessment and Plan (1) Acute renal failure: Qualifiers: Acute renal failure type: unspecified Qualified Code(s): N17.9 - Acute kidney failure, unspecified Code(s): N17.9 - Acute kidney failure, unspecified Status: Acute Assessment and Plan: PATIENT WITH NO KNOWN RENAL DISEASE LIKELY TO BE PRE RENAL PATIENT HAS NOT BEEN EATING OR DRINKING HAS HAD POOR P.O. INTAKE PATIENT HAS BEEN ALSO ON SPIRONOLACTONE HOLDING SPIRONOLACTONE RECEIVING FLUIDS which has been switched to bicarb gtt RECHECK BMP with elevated K, will givce a dose of kayexalate, currently npo and hence will give rectally. rechek bmp and monitor. CHASE CATHETER IN MONITOR INTAKE AND OUTPUT urine output over 24 hour yesterday is 1475 mL. Creatinine is down to 1.9 from 5 on admission Metabolic acidosis has resolved switched bicarb drip to normal saline at 50 cc an hour Nephrology following Kidney function back to normal. Very poor intake will need took speak to family about goals of care/address oral intake. Due to her dementia she needs to be fed This is resolved (2) Acute hyperkalemia: Code(s): E87.5 - Hyperkalemia Status: Acute Assessment and Plan: PATIENT RECEIVED TO THE HYPERKALEMIA PROTOCOL WILL BE REPEATING A POTASSIUM LEVEL CONTINUE TO MONITOR kayexalate rectal. Hyperkalemia has resolved (3) Adult failure to thrive: Code(s): R62.7 - Adult failure to thrive Status: Acute Assessment and Plan: PATIENT WITH ADVANCED DEMENTIA Poor p.o. intake: Needs to be fed due to her advanced dementia Will discuss goals of care with her for returning today hospice appropriate Family opting for hospice care wants to take her home If arrangements made after discussion hospice discharge (4) Decubitus ulcer: Qualifiers: Pressure injury location: unspecified location Pressure injury stage: unspecified pressure injury stage Qualified Code(s): L89.90 - Pressure ulcer of unspecified site, unspecified stage Code(s): L89.90 - Pressure ulcer of unspecified site, unspecified stage Status: Acute Assessment and Plan: LOCAL CARE (5) Parkinson's disease: Code(s): G20 - Parkinson's disease Status: Acute Assessment and Plan: CONTINUE CARBIDOPA LEVODOPA (6) Dementia: Code(s): F03.90 - Unspecified dementia without behavioral disturbance Status: Acute Assessment and Plan: SUPPORTIVE CARE Subjective Date/time seen: 07/22/21 10:02 Interval history: HPI: This is an 81-year-old female with past medical history significant for advanced dementia, dyslipidemia, Parkinson's disease, atrial fibrillation. Patient was brought to the emergency room due to daughter's concerns for the patient has declined in mentation and poor oral intake for the last 3 weeks or so patient had a visit to [facility] about a week ago to the emergency room and she then was discharged back home. Patient is unable to give any history she is moaning in pain according to daughter she has a worsening sacral decubitus ulcer, has had fever and very poor oral intake. 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 Decision has been made to admit the patient for further management, evaluation and treatment. 07/18/2021: overnight noted to be lethargic, minimally verbal, weak voice. some of the words are incomprehensible, however answering appropriately. junie weak. made 750 ml urine overnight, approximately 400 cc in the bag currently. 07/19/2021: No Overnight events. Patient is more awake asks me what she is supposed to do. She has advanced dementia and does not know where she is at. Chase catheter in place and making good amount urine. Renal function has gotten better to 1.9 today 07/20/2021. No overnight events. Jennifer
[2021-07-22] MEDS: ATORVASTATIN 40 MG TABLET 80 MG PO (20:50)
[2021-07-23 04:46] VITALS: BP 138/61; PULSE 47; RESP 16; TEMP 36; O2SAT 97
[2021-07-23 09:34] VITALS: PULSE 68
[2021-07-23] MEDS: RIVAROXABAN 15 MG TABLET PO (09:34)
[2021-07-23] MEDS: METOPROLOL SUCCINATE EXT REL 50 MG TABCR PO (09:34)
[2021-07-23] MEDS: CARBIDOPA/LEVODOPA 25/100 MG TABLET 1 TABLET PO ×2 (09:34→17:08)
[2021-07-23] MEDS: PRAMIPEXOLE 1 MG TABLET PO (09:34)
[2021-07-23 10:00] VITALS: BP 142/63; PULSE 46; RESP 16; TEMP 36.3; O2SAT 99
--- NOTE | 2021-07-23 10:32 | PM.IMPN ---
Subjective Date/time seen: 07/23/21 10:32 Objective Data Vital Signs Vital Signs: Vital Signs - 24 hr 07/22/21 14:00 07/22/21 18:00 07/22/21 21:47 Temperature 97.8 F 97.3 F L 97.0 F L Pulse Rate 50 L 49 L 50 L Respiratory Rate 20 20 16 Blood Pressure 135/68 120/72 151/70 H Pulse Oximetry 98 98 98 07/23/21 04:46 07/23/21 09:34 07/23/21 10:00 Temperature 96.8 F L 97.3 F L Pulse Rate 47 L 68 Respiratory Rate 16 16 Blood Pressure 138/61 142/63 H Pulse Oximetry 97 99 Intake/Output Intake/Output: Intake & Output 07/20/21 07/21/21 07/22/21 07/23/21 23:59 23:59 23:59 23:59 Intake Total 1540 2870 872 Output Total 850 750 450 250 Balance 690 2120 422 -250 Meds/Results Medications: Active Medications Generic Name Dose Route Start Last Admin Trade Name Derrellq PRN Reason Stop Dose Admin Atorvastatin Calcium 80 mg 07/21/21 21:00 07/22/21 20:50 Atorvastatin 40 Mg Tablet PO 80 mg HS SAMMY Administration Carbidopa/Levodopa 1 tablet 07/18/21 08:00 07/23/21 09:34 Carbidopa/Levodopa 25/100 Mg Tablet PO 1 tablet BIDWM SAMMY Administration Metoprolol Succinate 50 mg 07/18/21 09:00 07/23/21 09:34 Metoprolol Succinate Ext Rel 50 Mg Tabcr PO 50 mg QAM SAMMY Administration Pramipexole Dihydrochloride 1 mg 07/21/21 09:00 07/23/21 09:34 Pramipexole 1 Mg Tablet PO 1 mg Q12HR SAMMY Administration Rivaroxaban 15 mg 07/21/21 09:00 07/23/21 09:34 Rivaroxaban 15 Mg Tablet PO 15 mg QAM SAMMY Administration Radiology Results: ITS Impressions Head CT 07/17/21 21:13 IMPRESSION: 1. No fracture or acute intracranial process. 2. Age-related changes including mild diffuse volume loss and mild scattered white matter hypoattenuation consistent with chronic small vessel ischemic disease. Chest X-Ray 07/17/21 21:21 IMPRESSION: 1. Linear discoid atelectasis in the bilateral lower lung zones. Renal Ultrasound 07/18/21 11:05 IMPRESSION: 1. Mild bilateral renal atrophy. 2. No hydronephrosis.
--- NOTE | 2021-07-23 13:11 | PCPTNOTE ---
Attempted therapy at this time however patient was attempting to eat with nursing home assistant administrator. When asking patient how she was feeling she became very emotional and began weeping. Therapy not appropriate at this time due to emotional stress. Will attempt at a later date.
[2021-07-23 14:12] LABS: Chloride Rand Ur 48 mmol/L (32-290); Chloride/Creatinine Rand Ur 80 (38-318); Creatinine Random Urine 60 mg/dL (20-275)
--- NOTE | 2021-07-23 14:21 | PM.DS ---
DS: Admitting Diagnosis Discharge Date 07/23/21 Admitting Diagnosis 1) Acute renal failure: Qualifiers: Acute renal failure type: unspecified Qualified Code(s): N17.9 - Acute kidney failure, unspecified Code(s): N17.9 - Acute kidney failure, unspecified Status: Acute Assessment and Plan: PATIENT WITH NO KNOWN RENAL DISEASE LIKELY TO BE PRE RENAL PATIENT HAS NOT BEEN EATING OR DRINKING HAS HAD POOR P.O. INTAKE PATIENT HAS BEEN ALSO ON SPIRONOLACTONE HOLDING SPIRONOLACTONE RECEIVING FLUIDS RECHECK BMP CHASE CATHETER IN MONITOR INTAKE AND OUTPUT (2) Acute hyperkalemia: Code(s): E87.5 - Hyperkalemia Status: Acute Assessment and Plan: PATIENT RECEIVED TO THE HYPERKALEMIA PROTOCOL WILL BE REPEATING A POTASSIUM LEVEL CONTINUE TO MONITOR (3) Adult failure to thrive: Code(s): R62.7 - Adult failure to thrive Status: Acute Assessment and Plan: PATIENT WITH ADVANCED DEMENTIA CONSIDER HOSPICE (4) Decubitus ulcer: Qualifiers: Pressure injury location: unspecified location Pressure injury stage: unspecified pressure injury stage Qualified Code(s): L89.90 - Pressure ulcer of unspecified site, unspecified stage Code(s): L89.90 - Pressure ulcer of unspecified site, unspecified stage Status: Acute Assessment and Plan: LOCAL CARE (5) Parkinson's disease: Code(s): G20 - Parkinson's disease Status: Acute Assessment and Plan: CONTINUE CARBIDOPA LEVODOPA (6) Dementia: Code(s): F03.90 - Unspecified dementia without behavioral disturbance Status: Acute Assessment and Plan: SUPPORTIVE CARE DS: Discharge Diagnosis Discharge Diagnosis (1) Acute renal failure: Qualifiers: Acute renal failure type: unspecified Qualified Code(s): N17.9 - Acute kidney failure, unspecified Code(s): N17.9 - Acute kidney failure, unspecified Status: Acute Assessment and Plan: PATIENT WITH NO KNOWN RENAL DISEASE LIKELY TO BE PRE RENAL PATIENT HAS NOT BEEN EATING OR DRINKING HAS HAD POOR P.O. INTAKE PATIENT HAS BEEN ALSO ON SPIRONOLACTONE HOLDING SPIRONOLACTONE RECEIVING FLUIDS which has been switched to bicarb gtt RECHECK BMP with elevated K, will givce a dose of kayexalate, currently npo and hence will give rectally. rechek bmp and monitor. CHASE CATHETER IN MONITOR INTAKE AND OUTPUT urine output over 24 hour yesterday is 1475 mL. Creatinine is down to 1.9 from 5 on admission Metabolic acidosis has resolved switched bicarb drip to normal saline at 50 cc an hour Nephrology following Kidney function back to normal. Very poor intake will need took speak to family about goals of care/address oral intake. Due to her dementia she needs to be fed This is resolved (2) Acute hyperkalemia: Code(s): E87.5 - Hyperkalemia Status: Acute Assessment and Plan: PATIENT RECEIVED TO THE HYPERKALEMIA PROTOCOL WILL BE REPEATING A POTASSIUM LEVEL CONTINUE TO MONITOR kayexalate rectal. Hyperkalemia has resolved (3) Adult failure to thrive: Code(s): R62.7 - Adult failure to thrive Status: Acute Assessment and Plan: PATIENT WITH ADVANCED DEMENTIA Poor p.o. intake: Needs to be fed due to her advanced dementia Will discuss goals of care with her for returning today hospice appropriate Family opting for hospice care wants to take her home If arrangements made after discussion hospice discharge (4) Decubitus ulcer: Qualifiers: Pressure injury location: unspecified location Pressure injury stage: unspecified pressure injury stage Qualified Code(s): L89.90 - Pressure ulcer of unspecified site, unspecified stage Code(s): L89.90 - Pressure ulcer of unspecified site, unspecified stage Status: Acute Assessment and Plan: LOCAL CARE (5) Parkinson's disease: Code(s): G20 - Parkinson's disease Status: Acute Assessment and Plan:
[2021-07-23 14:40] VITALS: BP 149/62; PULSE 46; RESP 20; TEMP 36.6; O2SAT 98
--- NOTE | 2021-07-23 17:16 | PC.NURSE ---
spoke with Dr. Cannon, patient to discharge home with epstein catheter in place.
== END 2021-07-23 18:56 | disposition hospice, home (50) | DRG 684 ==
LOC: ANHED 23:35 → ANHIMU 07-18 01:00 → ANH2MED 07-22 05:11
PROVIDERS: Emergency Medicine; Internal Medicine; Internal Medicine Nephrology; Admitting Provider Internal Medicine; Emergency Provider Emergency Medicine; PCP Internal Medicine; Visit Provider Internal Medicine
DX: N17.9 Acute kidney failure, unspecified (principal); E87.5 Hyperkalemia; R62.7 Adult failure to thrive; G20 Parkinson's disease; E78.5 Hyperlipidemia, unspecified; R19.7 Diarrhea, unspecified; I48.91 Unspecified atrial fibrillation; L89.159 Pressure ulcer of sacral region, unspecified stage; Z68.27 Body mass index [BMI] 27.0-27.9, adult; F02.80 Dementia in other diseases classified elsewhere, unspecified severity, without behavioral disturbance, psychotic disturbance, mood disturbance, and anxiety
CPT/HCPCS: 36415; 70450; 71046; 76775; 80048; 80053; 80069; 81001; 82436; 82550; 82570; 83605; 83735; 84300; 85025; 85610; 85730; 86850; 86900; 86901; 93005; 94640; 96361; 96374; 96375; 97110; 97163; 97167; 97530; 97535; 99285; A9270; J0131; J0610; J1170; J1815; J7030; J7120